=== PATIENT | female | born 1975 | race Caucasian/White ===

== ENCOUNTER 2017-01-19 20:06 | Observation (INO) | payer MEDICAID, OTHER ==
[2017-01-19] MEDS ORDERED: ONDANSETRON 4 MG TAB.RAPDIS PO ONE (20:37)
--- NOTE | 2017-01-19 20:43 | ER Document Report ---
ED Medical Screen (RME) - General Chief Complaint: Abdominal Pain Stated Complaint: ABDOMINAL PAIN Time Seen by Provider: 01/19/17 20:35 Mode of Arrival: Ambulatory Information source: Patient - HPI Onset: This morning Onset/Duration: Sudden Context: UNPROVOKED Quality of pain: Cramping, Sharp Severity: Moderate Associated Symptoms: Nausea, Sweating, Vomiting. denies: Chest pain, Cough ( productive), Cough (nonproductive), Fever, Leg swelling, Shortness of breath Exacerbated by: Denies Relieved by: Denies Similar symptoms previously: No Recently seen / treated by doctor: No - Related Data Smoking: Non-smoker Frequency of alcohol use: Occasional Drug Abuse: None Allergies/Adverse Reactions: aspirin Allergy (Verified 01/19/17 20:15) ibuprofen Allergy (Verified 01/19/17 20:15) Sulfa (Sulfonamide Antibiotics) Allergy (Verified 01/19/17 20:15) Past Medical History - General Information source: Patient - Social History Cigarette use (# per day): No Chew tobacco use (# tins/day): No Frequency of alcohol use: Occasional Drug Abuse: None Lives with: Family Family history: None - Past Medical History Cardiac Medical History: Reports: None Pulmonary Medical History: Reports: Hx Asthma EENT Medical History: Reports: Other - SINUSITIS Neurological Medical History: Reports: None Endocrine Medical History: Reports: None Renal/ Medical History: Reports: None. Denies: Hx Peritoneal Dialysis Malignancy Medical History: Reports: None GI Medical History: Reports: None Musculoskeltal Medical History: Reports None Psychiatric Medical History: Reports: None Past Surgical History: Reports: Hx Nose Surgery - SINUSES, Other - DERMOID CYST REMOVAL. Denies: Hx Appendectomy, Hx Cholecystectomy - Immunizations Hx Diphtheria, Pertussis, Tetanus Vaccination: No Review of Systems - Review of Systems Constitutional: Weakness EENT: No symptoms reported Cardiovascular: No symptoms reported Respiratory: No symptoms reported Gastrointestinal: See HPI Genitourinary: No symptoms reported Female Genitourinary: No symptoms reported Musculoskeletal: No symptoms reported Skin: No symptoms reported Neurological/Psychological: No symptoms reported Physical Exam - Vital signs Vitals: Temp Pulse Resp BP Pulse Ox 97.5 F 64 12 145/94 H 100 01/19/17 20:16 01/19/17 20:16 01/19/17 20:16 01/19/17 20:16 01/19/17 20:16 Interpretation: Hypertensive. No: Tachycardic, Tachypneic, Febrile - General General appearance: Appears well, Alert In distress: None - HEENT Head: Normocephalic Eyes: Normal Conjunctiva: Normal Ears: Normal Nasal: Normal Mouth/Lips: Normal Mucous membranes: Normal - Respiratory Respiratory status: No respiratory distress - Cardiovascular Rhythm: Regular - Abdominal Inspection: Normal Distension: No distension Tenderness: Tender - MILD, EPIGASTRIC - Back Back: Normal - Extremities General upper extremity: Normal inspection General lower extremity: Normal inspection - Neurological Neuro grossly intact: Yes Cognition: Normal Orientation: AAOx4 - Psychological Associated symptoms: Normal affect, Normal mood - Skin Skin Temperature: Warm Skin Moisture: Dry Skin Color: Normal Skin Turgor: Elastic Course - Vital Signs Vital signs: Temp Pulse Resp BP Pulse Ox 97.5 F 64 12 145/94 H 100 01/19/17 20:16 01/19/17 20:16 01/19/17 20:16 01/19/17 20:16 01/19/17 20:16
[2017-01-19 21:19] LABS: ABSOLUTE BASOPHILS # (AUTO) 0.1 10^3/uL (0.0-0.2); ABSOLUTE EOSINOPHILS # (AUTO) 0.3 10^3/uL (0.0-0.6); ABSOLUTE LYMPHOCYTES (AUTO) 1.5 10^3/uL (0.5-4.7); ABSOLUTE MONOCYTES (AUTO) 0.4 10^3/uL (0.1-1.4); ABSOLUTE NEUT (AUTO) 6.8 10^3/uL (1.7-8.2); BASOPHILS % (AUTO) 0.6 % (0-2); EOSINOPHILS % (AUTO) 2.8 % (0-6); HEMATOCRIT 44.5 % (36.0-47.0); HEMOGLOBIN 15.2 g/dL (12.0-15.5); HGB HCT DIFFERENCE 1.1; LYMPHOCYTES % (AUTO) 16.5 % (13-45); MEAN CORPUSCULAR HEMOGLOBIN 31.6 pg (27.0-33.4); MEAN CORPUSCULAR HGB CONC 34.2 g/dL (32.0-36.0); MEAN CORPUSCULAR VOLUME 92 fl (80-97); MONOCYTES % (AUTO) 4.9 % (3-13); RED BLOOD COUNT 4.81 10^6/uL (3.72-5.28); RED CELL DISTRIBUTION WIDTH 13.1 % (11.5-14.0); SEGMENTED NEUTROPHILS % (AUTO) 75.2 % (42-78)
[2017-01-19 21:24] LABS: APPEARANCE,URINE CLEAR; BILIRUBIN,URINE NEGATIVE (NEGATIVE); GLUCOSE, URINE NEGATIVE (NEGATIVE); KETONES,URINE NEGATIVE (NEGATIVE); LEUKOCYTE ESTERASE,URINE NEGATIVE (NEGATIVE); NITRITE,URINE NEGATIVE (NEGATIVE); PROTEIN,URINE NEGATIVE (NEGATIVE); URINE SPECIFIC GRAVITY 1.015; UROBILINOGEN,URINE NEGATIVE mg/dL (<2.0)
[2017-01-19 21:39] LABS: ALANINE AMINOTRANSFERASE 22 U/L (9-52); ALBUMIN 4.9 g/dL (3.5-5.0); ALKALINE PHOSPHATASE 91 U/L (38-126); ANION GAP 13 (5-19); ASPARTATE AMINO TRANSFERASE 20 U/L (14-36); BILIRUBIN,DIRECT 0.3 mg/dL (0.0-0.4); BILIRUBIN,TOTAL 0.6 mg/dL (0.2-1.3); BLOOD UREA NITROGEN 13 mg/dL (7-20); CALCIUM 9.1 mg/dL (8.4-10.2); CARBON DIOXIDE 24 mmol/L (22-30); CHLORIDE 103 mmol/L (98-107); CREATININE RESULT 0.69 mg/dL (0.52-1.25); GLUCOSE 103 mg/dL (75-110); LIPASE 175.4 U/L (23-300); POTASSIUM 4.1 mmol/L (3.6-5.0); SODIUM 140.1 mmol/L (137-145); TOTAL PROTEIN 8.5 g/dL (6.3-8.2)
[2017-01-19] MEDS ORDERED: MAG HYDROX/AL HYDROX/SIMETH SUSP 30 ML UDCUP PO ONE ×2 (23:37→23:50)
[2017-01-19] MEDS ORDERED: LIDOCAINE 2% VISCOUS SOLN 20 ML UDCUP PO ONE ×2 (23:37→23:50)
[2017-01-19] MEDS ORDERED: METOCLOPRAMIDE HCL ORAL SOLN 10 MG/10 ML UDCUP PO ONE ×2 (23:37→23:50)
[2017-01-19] MEDS ORDERED: NORMAL SALINE 1000 ML 1,000 ML IV ONE (23:38)
[2017-01-19] MEDS ORDERED: ONDANSETRON HCL INJ/PF 4 MG/2 ML SDV IV ONE (23:47)
[2017-01-19] MEDS ORDERED: MORPHINE SULFATE 10 MG/ML INJ IV PRN (23:47)
--- NOTE | 2017-01-19 23:48 | ER Document Report ---
ED General - General Chief Complaint: Abdominal Pain Stated Complaint: ABDOMINAL PAIN Time Seen by Provider: 01/19/17 20:35 Mode of Arrival: Ambulatory Notes: Patient is a 41-year-old female without significant past medical history who presents with 12-24 hours of right upper quadrant abdominal pain that has gotten progressively worse since onset. She does describe it as a dull, constant pressure-like sensation to the right upper quadrant and epigastrium. Has had multiple episodes of associated vomiting. Nothing improves or worsens her pain. She denies any history of similar symptoms in the past. She has not seen a primary care doctor regarding today's concerns. Denies any fever, diarrhea, chest pain or shortness of breath. - Related Data Allergies/Adverse Reactions: aspirin Allergy (Verified 01/19/17 20:15) ibuprofen Allergy (Verified 01/19/17 20:15) Sulfa (Sulfonamide Antibiotics) Allergy (Verified 01/19/17 20:15) Past Medical History - General Information source: Patient - Social History Smoking Status: Never Smoker Cigarette use (# per day): No Chew tobacco use (# tins/day): No Frequency of alcohol use: Occasional Drug Abuse: None Lives with: Family Family History: Reviewed & Not Pertinent - Past Medical History Cardiac Medical History: Reports: None Pulmonary Medical History: Reports: Hx Asthma EENT Medical History: Reports: Other - SINUSITIS Neurological Medical History: Reports: None Endocrine Medical History: Reports: None Renal/ Medical History: Reports: None. Denies: Hx Peritoneal Dialysis Malignancy Medical History: Reports: None GI Medical History: Reports: None Musculoskeltal Medical History: Reports None Psychiatric Medical History: Reports: None Past Surgical History: Reports: Hx Nose Surgery - SINUSES, Other - DERMOID CYST REMOVAL. Denies: Hx Appendectomy, Hx Cholecystectomy - Immunizations Hx Diphtheria, Pertussis, Tetanus Vaccination: No Review of Systems - Review of Systems Notes: Constitutional: Negative for fever. HENT: Negative for sore throat. Eyes: Negative for visual changes. Cardiovascular: Negative for chest pain. Respiratory: Negative for shortness of breath. Gastrointestinal: Positive for abdominal pain and vomiting Genitourinary: Negative for dysuria. Musculoskeletal: Negative for back pain. Skin: Negative for rash. Neurological: Negative for headaches, weakness or numbness. 10 point ROS negative except as marked above and in HPI. Physical Exam - Vital signs Vitals: Temp Pulse Resp BP Pulse Ox 97.5 F 64 12 145/94 H 100 01/19/17 20:16 01/19/17 20:16 01/19/17 20:16 01/19/17 20:16 01/19/17 20:16 Interpretation: Hypertensive Notes: PHYSICAL EXAMINATION: GENERAL: Moderately ill in appearance but in no acute distress HEAD: Atraumatic, normocephalic. EYES: Pupils equal round and reactive to light, extraocular movements intact, sclera anicteric, conjunctiva are normal. ENT: nares patent, oropharynx clear without exudates. Moderately dry mucous membranes. NECK: Normal range of motion, supple without lymphadenopathy LUNGS: Breath sounds clear to auscultation bilaterally and equal. No wheezes rales or rhonchi. HEART: Regular rate and rhythm without murmurs ABDOMEN: Soft, focal tenderness the right upper quadrant and epigastrium with voluntary guarding in both locations. Positive Vines sign. No rebound tenderness. No lower abdominal tenderness. EXTREMITIES: Normal range of motion, no pitting or edema. No cyanosis. NEUROLOGICAL: No focal neurological deficits. Moves all extremities spontaneously and on command. PSYCH: Normal mood, normal affect. SKIN: Warm, Dry, normal turgor, no rashes or lesions noted. Course - Re-evaluation Re-evalutation: 01/19/17 23:48 Patient presents with upper abdominal pain, nausea and vomiting. She appears to be in pain on initial exam with focal tenderness in the epigastrum and ruq with positive vines's sign. Labs unremarkable. No evidence of pancreatitis, hepatitis, or urinary pathology on labs. Patient is absolutely no lower abdominal tenderness to suggest an acute appendicitis, ovarian or uterine related pathology. Will obtain right upper quadrant ultrasound to evaluate for acute cholecystitis and reassess. 01/20/17 01:11 Right upper quadrant ultrasound does demonstrate findings consistent with acute cholecystitis. The surgeon is currently occupied in the operating room with a critically ill patient. I will start this patient on IV piperacillin, continue IV analgesia, maintenance fluids and plan for admission. 01/20/17 02:58 I have discussed this case with Dr. Davalos who is agreed to admit the patient. - Vital Signs Vital signs: Temp Pulse Resp BP Pulse Ox 97.5 F 64 12 145/94 H 100 01/19/17 20:16 01/19/17 20:16 01/19/17 20:16 01/19/17 20:16 01/19/17 20:16 - Laboratory Result Diagrams: 01/19/17 20:55 01/19/17 20:55 Laboratory results interpreted by me: 01/19/17 20:55 Total Protein 8.5 H - Diagnostic Test Radiology reviewed: Image reviewed, Reports reviewed Discharge - Discharge Clinical Impression: Acute cholecystitis Condition: Fair Disposition: ADMITTED OBSERVATION Admitting Provider: Surgicalist - [place] Unit Admitted: Surgical Floor
--- NOTE | 2017-01-20 00:40 | RADIOLOGY REPORT (SQ) ---
EXAM DESCRIPTION: U/S ABDOMEN LIMITED W/O DOP COMPLETED DATE/TIME: 01/20/2017 12:20 am REASON FOR STUDY: eval ruq pain COMPARISON: None. TECHNIQUE: Dynamic and static grayscale images acquired of the abdomen and recorded on PACS. Additio nal selected color Doppler and spectral images recorded. LIMITATIONS: None. FINDINGS: PANCREAS: No masses. Visualized pancreatic duct normal caliber. LIVER: No masses. Echotexture normal. LIVER VASCULATURE: Normal directional flow of the main portal vein and hepatic veins. GALLBLADDER: Distended. Multiple stones. No pericholecystic fluid. Gallbladder wall normal thickne ss. ULTRASOUND-DETECTED VINES'S SIGN: Positive. INTRAHEPATIC DUCTS AND COMMON DUCT: CBD and intrahepatic ducts normal caliber. No filling defects. INFERIOR VENA CAVA: Normal flow. AORTA: No aneurysm. RIGHT KIDNEY: Normal size. Normal echogenicity. No solid or suspicious masses. No hydronephrosis. No calcifications. PERITONEAL AND RIGHT PLEURAL SPACE: No ascites or effusions. OTHER: No other significant findings. IMPRESSION: Distended gallbladder with stones. Positive ultrasound Vines sign. TECHNICAL DOCUMENTATION: JOB ID: [id number] [employer]- All Rights Reserved
[2017-01-20] MEDS ORDERED: PIPERACILLIN/TAZOBACTAM 3.375 GM VIAL IV ONE (01:12)
[2017-01-20] MEDS ORDERED: RINGERS SOLUTION,LACTATED 1,000 ML IV PRN (03:54)
[2017-01-20] MEDS: MORPHINE SULFATE 10 MG/ML INJ IV PRN ×2 (05:57→08:45)
[2017-01-20] MEDS: CEFAZOLIN 1 GM/D5W RTU 1 GM/50 ML RTUPB IV SCH ×3 (06:05→19:33)
[2017-01-20] MEDS ORDERED: BUPIVACAINE HCL 0.25 % INJ/PF (2.5 MG/1 ML) 30 ML VIAL ONE (11:10)
[2017-01-20] MEDS ORDERED: IPRATROPIUM/ALBUTEROL 0.5-2.5 MG/3 ML AMPUL NEB ONE (13:43)
[2017-01-20] MEDS ORDERED: FENTANYL CITRATE INJ/PF 100 MCG/2 ML AMPUL ONE ×2 (13:48→15:01)
[2017-01-20] MEDS ORDERED: PROPOFOL INJ 200 MG/20 ML VIAL IV ONE (13:49)
[2017-01-20] MEDS ORDERED: MIDAZOLAM 2 MG/2 ML INJ ONE (13:49)
--- NOTE | 2017-01-20 13:49 | EKG REPORT ---
SEVERITY:- BORDERLINE ECG - SINUS RHYTHM PROBABLE LEFT ATRIAL ABNORMALITY BORDERLINE T ABNORMALITIES, INFERIOR LEADS : Confirmed by: Beckie Blevins MD 20-Jan-2017 13:48:31
[2017-01-20] MEDS ORDERED: ACETAMINOPHEN 100 ML IV ONE (13:50)
[2017-01-20] MEDS ORDERED: CEFAZOLIN INJ 1 GM VIAL ONE (14:40)
[2017-01-20] MEDS ORDERED: PROMETHAZINE HCL INJ 25 MG/1 ML VIAL IV PRN (15:05)
[2017-01-20] MEDS ORDERED: FENTANYL CITRATE INJ/PF 100 MCG/2 ML AMPUL IV PRN ×3 (15:05)
[2017-01-20] MEDS ORDERED: DIPHENHYDRAMINE HCL 50 MG/ML VIAL IV PRN (15:05)
[2017-01-20] MEDS ORDERED: ONDANSETRON HCL INJ/PF 4 MG/2 ML SDV IV PRN (15:34)
[2017-01-20] MEDS ORDERED: MORPHINE SULFATE 10 MG/ML INJ IV PRN (15:34)
--- NOTE | 2017-01-20 15:34 | Operative Report ---
Operative Report DATE OF SURGERY: 01/20/17 PREOPERATIVE DIAGNOSIS: Acute cholecystitis with cholelithiasis POSTOPERATIVE DIAGNOSIS: Same with gangrenous cholecystitis OPERATION: Laparoscopic cholecystectomy SURGEON: SHARON GARCIA ANESTHESIA: GA TISSUE REMOVED OR ALTERED: 1 gallbladder with contents COMPLICATIONS: None ESTIMATED BLOOD LOSS: Scant INTRAOPERATIVE FINDINGS: See below PROCEDURE: Patient was taken to the preop holding area the main operating room and general anesthesia was induced. Arms were abducted, abdomen exposed, prepped and draped sterile fashion. Surgical plan and surgical timeout were conducted A supraumbilical vertical incision made with a knife and Veress needle inserted peritoneal cavity pneumoperitoneum established. Veress needle removed, 5 mm ports inserted and a 5 mm viewing scope was inserted. Under direct visualization 3 additional ports were placed one in the subxiphoid and 2 in the subcostal position. Findings were significant for an acutely inflamed gallbladder, pregangrenous. Photos were taken. The gallbladder was aspirated approximately 100 cc of bile The gallbladder was grasped in the fundus and infundibulum and a conventional bottom up approach was initiated. We began taking the adhesions from around the infundibulum of the gallbladder, however they were so dense I felt that a top down approach would be more appropriate Graspers were repositioned, the gallbladder was taken off the liver bed using hook cautery dissection. This proceeded uneventfully. Eventually the gallbladder suspended solely from the cystic duct and cystic artery and these structures were both in their typical location. Of note the cystic duct was extremely short perhaps 2 cm in length. Multiple photographs were taken. The cystic artery was clipped twice proximally once distally divided with scissors. Gallbladder was now suspended exclusively from the cystic duct. Photographs were taken. The cystic duct was clamped 3 times proximally once distally divided with scissors. Removed from the through the supraumbilical port site incision without stone spillage. We returned the peritoneal cavity check for bleeding there was none. Sponge and counts correct. All ports removed under direct visualization, pneumoperitoneum evacuated, and wounds closed with 0 Vicryl 3-0 Vicryl benzoin and Steri-Strips Patient tolerated the procedure well, extubated and taken recovery in stable condition.
--- NOTE | 2017-01-20 15:44 | HISTORY AND PHYSICAL E ---
History and Physical NAME: KELLY FORBES : 1975 AGE: 41Y ADMITTED: 01/20/2017 ROOM: 210 REASON FOR ADMISSION: Acute cholecystitis. HISTORY OF PRESENTING ILLNESS: The patient is a 41-year-old female, previously healthy with approximately a 1-week history of headache and associated nausea. The patient developed abdominal pain in the epigastric area and a dull-like sensation, felt like something was crushing her upper abdomen. She had multiple episodes of vomiting. She denies previous episodes. She was brought to the emergency department, where she was found to have right upper quadrant tenderness. She had a gallbladder ultrasound, which showed cholelithiasis consistent with cholecystitis. Surgery was consulted and she was advised admission. PAST MEDICAL HISTORY: Significant for asthma. PAST SURGICAL HISTORY: Significant for: 1. Dermoid cyst removed, left ovary, 2014. 2. Sinus surgery x3, [place]. 3. Breast augmentation 2 years ago, Dr. Saucedo. SOCIAL HISTORY: The patient does not smoke. Alcohol use is sporadic. 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 ALLERGIES: Include: 1. ASPIRIN. 2. IBUPROFEN. 3. SULFA. IMMUNIZATIONS: Up to date. FAMILY HISTORY: Noncontributory. REVIEW OF SYSTEMS: CONSTITUTIONAL: Patient denies. CARDIOVASCULAR: Patient denies. GASTROINTESTINAL: As per HPI. MUSCULOSKELETAL: Patient denies. PHYSICAL EXAMINATION: GENERAL: Patient examined in the emergency department. She received a total of 10 mg of morphine. The patient is drowsy, but she arouses and follows commands. HEAD/EYES: Without icterus. NECK: No adenopathy. LUNGS: Clear to auscultation bilaterally. HEART: Without murmur or gallop. ABDOMEN: Soft, but very tender in the epigastric area. There is guarding. There is some rebound. EXTREMITIES: Upper and lower extremities without cyanosis, clubbing, or edema. The remainder of her examination is unremarkable. DIAGNOSTIC DATA: Laboratory profile shows a white blood cell count of 9,000; hemoglobin of 15.2. Electrolytes within normal limits. Lipase 175. Beta hCG negative Gallbladder ultrasound performed 2300 on 01/19/2017 showed cholelithiasis, no pericholecystic fluid. Summary: Biliary duct anatomy felt to be within normal limits. IMPRESSION: Acute cholecystitis with cholelithiasis in and otherwise healthy 41-year-old white female with normal liver function studies. RECOMMENDATION: The patient will be admitted to the surgicalist service, kept n.p.o. on IV fluids, intravenous antibiotics, and set up for interval laparoscopic, possible open cholecystectomy. DICTATING PHYSICIAN: SHARON GARCIA M.D. [id number] PHY#: [id number] ID: [id number] JOB#: [id number] ACCT: [id number] cc:SHARON GARCIA M.D. >
[2017-01-20] MEDS ORDERED: LIDOCAINE 2% INJ-PF (20 MG/ML) 10 ML AMPUL ONE (16:06)
[2017-01-20] MEDS ORDERED: DEXAMETHASONE SOD PHOSPHATE INJ 4 MG/1 ML VIAL ONE (16:06)
[2017-01-20] MEDS ORDERED: ROCURONIUM BROMIDE INJ 50 MG/5 ML VIAL IV ONE (16:06)
[2017-01-20] MEDS ORDERED: GLYCOPYRROLATE INJ 0.4 MG/2 ML VIAL ONE (16:06)
[2017-01-20] MEDS ORDERED: NEOSTIGMINE METHYLSULFATE 10 MG/10 ML VIAL ONE (16:06)
[2017-01-20] MEDS ORDERED: SUCCINYLCHOLINE CHLORIDE INJ 200 MG/10 ML VIAL ONE (16:06)
[2017-01-20] MEDS ORDERED: ONDANSETRON HCL INJ/PF 4 MG/2 ML SDV ONE (16:06)
[2017-01-20] MEDS ORDERED: KETOROLAC TROMETHAMINE 10 MG TABLET PO PRN (17:07)
[2017-01-20] MEDS ORDERED: OXYCODONE-ACETAMINOPHEN 5-325 MG TABLET PO PRN (17:11)
[2017-01-20 22:21] VITALS: BP 134/81
--- NOTE | 2017-01-23 19:44 | DISCHARGE SUMMARY E ---
Discharge Summary NAME: KELLY FORBES : 1975 AGE: 41Y ADMITTED: 01/20/2017 DISCHARGED: 01/21/2017 SUMMARY OF HOSPITALIZATION: The patient is a 41-year-old white female who presents to the emergency department complaining of abdominal pain. She was evaluated and found to have findings consistent with acute cholecystitis with cholelithiasis. The patient was admitted to the surgicalist service, kept NPO on IV fluids. The following day, she was taken to the operating room where she underwent laparoscopic cholecystectomy. She was found to have an acutely inflamed gallbladder. Her final pathology report revealed acute and chronic cholecystitis with cholelithiasis. The patient tolerated the procedure well postoperatively, diet was advanced, and she had no further issues. By the evening of the first postoperative day, she was discharged home. FINAL DIAGNOSIS: Acute and chronic cholecystitis, status post laparoscopic cholecystectomy. DISPOSITION: The patient will be discharged home to care of family. Follow up with Dr. Davalos or colleague at [facility] in approximately 1 week. DICTATING PHYSICIAN: SHARON DAVALOS M.D. [id number] PHY#: [id number] ID: [id number] JOB#: [id number] ACCT: [id number] cc:Urvashi COREAS M.D. >
== END 2017-01-20 21:23 | disposition home or self-care (01) ==
LOC: ER 20:06 → EH 01-20 03:23 → UNDOADMOB 01-20 03:23 → EH 01-20 03:52 → 2N 01-20 05:30
PROC: 0FT44ZZ Resection of Gallbladder, Percutaneous Endoscopic Approach (ICD-10-PCS; principal; 2017-01-20 12:15)
DX: K80.12 Calculus of gallbladder with acute and chronic cholecystitis without obstruction (principal)
CPT/HCPCS: 99285; 96361; 96374; 36415; 83690; 84703; 85025; 80053; 81001; 88304 ×2; 76705; 93005; 93010; 47562; G0378; J2250; J0690 ×2; J3490 ×6; J1100; S0119; J3010; J2270; J0330; J2405; S0020; J7030; J2704; J7620; J0131; 790